=== PATIENT | female | born 1950 | race Asian ===

== ENCOUNTER 2018-05-04 08:42 | Day surgery (SDC) | payer MEDICARE, MEDICAID ==
[~2018-05-04] VITALS: Ht 152.5 cm; Wt 56.5 kg
[2018-05-04] VITALS (8 sets, daily range): BP systolic 129–152; BP diastolic 62–96; PULSE 59–65; TEMP 97.2
[2018-05-04 09:24] LABS: MEAN CELL VOLUME 88 fl (80.0-100.0); MEAN CORPUSCULAR HEMOGLOBIN 30 pg (27.0-31.0); MEAN CORPUSCULAR HGB CONC 34 g/dl (33.0-37.0); PLATELET COUNT 115 K/mm3 (130-400); RED BLOOD COUNT 3.96 M/mm3 (4.10-5.30); REDCELL DISTRIBUTION WIDTH-CV 17.9 % (11.5-14.5)
[2018-05-04 09:33] LABS: CALCIUM 8.3 mg/dL (8.4-10.2); POTASSIUM 3.9 mmol/L (3.4-5.0)
[2018-05-04 09:35] LABS: PROTHROMBIN TIME 11.7 SECONDS (9.7-12.8)
[2018-05-04 09:37] LABS: CREATININE, serum 5.43 mg/dL (0.52-1.25)
[2018-05-04] MEDS ORDERED: ZEBETA 5MG5 MG PO (09:51)
[2018-05-04] MEDS ORDERED: COLACE 100100 MG/CAP PO (09:51)
[2018-05-04] MEDS ORDERED: LEVOXYL0.1 MG PO (09:51)
[2018-05-04] MEDS ORDERED: ASPIRIN 81M81 MG/TA2 PO (12:31)
== END 2018-05-04 14:15 | disposition short-term general hospital (02) ==
LOC: COL.CAR 08:42
PROVIDERS: Internal Medicine Cardiovascular Disease
DX: I25.10 Atherosclerotic heart disease of native coronary artery without angina pectoris (principal); I27.20 Pulmonary hypertension, unspecified; I42.9 Cardiomyopathy, unspecified; I08.3 Combined rheumatic disorders of mitral, aortic and tricuspid valves; N18.4 Chronic kidney disease, stage 4 (severe); I77.0 Arteriovenous fistula, acquired; Z87.891 Personal history of nicotine dependence; E07.9 Disorder of thyroid, unspecified
CPT/HCPCS: C1760; C1894; J0153; J2250; J3010; Q9967